=== PATIENT | male | born 1975 | race American Indian/Alaskan Native ===

== ENCOUNTER 2016-08-08 12:10 | Emergency (ER) | payer SELFPAY ==
[2016-08-08 12:26] VITALS: BP 137/87
[2016-08-08 13:13] LABS: Alanine Aminotransferase 13 units/L (7-56); Albumin 3.6 g/dL (3.9-5); Albumin/Globulin Ratio 1.4 %; Alkaline Phosphatase 68 units/L (35-129); BUN/Creatinine Ratio 6.36; Bilirubin,Total 0.2 mg/dL (0.1-1.2); Blood Urea Nitrogen 7 mg/dL (9-20); Calcium 8.8 mg/dL (8.4-10.2); Carbon Dioxide 23 mmol/L (22-30); Glucose 310 mg/dL (75-100); Lipase 37 units/L (13-60); Total Protein 6.2 g/dL (6.3-8.2)
[2016-08-08 13:14] LABS: Anion Gap 18 mmol/L; Chloride 100.2 mmol/L (98-107); Potassium 4.1 mmol/L (3.6-5.0); Sodium 137 mmol/L (137-145)
[2016-08-08 13:27] LABS: Eosinophils % (Auto) 1.1 % (0.0-4.3); Hematocrit 40.8 % (35.5-45.6); Hemoglobin 13.6 gm/dl (11.8-15.2); Mean Corpuscular HGB Conc 33 % (32-34); Mean Corpuscular Hemoglobin 30 pg (28-32); Mean Corpuscular Volume 89 fl (84-94); Platelet Count 188 K/mm3 (140-440); Red Cell Distribution Width 13.6 % (13.2-15.2); White Blood Count 8.9 K/mm3 (4.5-11.0)
[2016-08-08 13:30] LABS: Bilirubin,Urine NEG (Negative); Blood,Urine NEG (Negative); Ketones,Urine TR mg/dL (Negative); Leukocyte Esterase,Urine NEG (Negative); Mucus,Urine FEW /HPF; Nitrite,Urine NEG (Negative); Protein,Urine <15 mg/dL mg/dL (Negative); Urobilinogen,Urine < 2.0 mg/dL (<2.0)
[2016-08-08 13:31] LABS: WBC,Urine < 1.0 /HPF (0.0-6.0)
== END 2016-08-08 20:45 | disposition left against medical advice (07) ==
LOC: ED 12:10
DX: R10.9 Unspecified abdominal pain (principal); R11.0 Nausea; Z53.21 Procedure and treatment not carried out due to patient leaving prior to being seen by health care provider
CPT/HCPCS: 36415; 80053; 81001; 83690; 85025

== ENCOUNTER 2016-08-09 11:30 | Emergency (ER) | payer SELFPAY ==
[2016-08-09] MEDS: MORPHINE IV ONE (18:39)
[2016-08-09] MEDS: NACL 0.9% 1000 ML 1,000 ML IV ONE (18:39)
--- NOTE | 2016-08-09 18:42 | Emergency Department Report ---
HPI - General Chief Complaint: Abdominal Pain Time Seen by Provider: 08/09/16 18:27 - HPI HPI: This is a 41-year-old Afro-[place]ish male who presents to the emergency department with a few days of lower abdominal pain, nausea without vomiting and some rectal bleeding with bowel movements. Patient says he has a history of diverticulitis back in 2014 and says this feels very similar. He was here at [facility] yesterday and had some blood work drawn but eloped prior to seeing a physician due to the wait. He also has a history of diabetes but says he has not had any medication for about 8 months. He did not take anything for symptoms prior to presentation. He drove himself in to be seen today. No recent travel or sick contacts at home. He does not have a primary care doctor. ED Past Medical Hx - Past Medical History Hx Diabetes: Yes (NO MEDS X 8 MONTHS) Additional medical history: DIVERTICULITIS - Social History Smoking Status: Current Every Day Smoker Substance Use Type: Alcohol - Medications Home Medications: Home Medications Medication Instructions Recorded Confirmed Last Taken Type Amoxicillin/K Clav Tab [Augmentin 1 tab PO Q12HR #20 tab 08/09/16 Unknown Rx 875 mg] HYDROcodone/APAP 5-325 [[place] 1 each PO Q6HR PRN #14 tablet 08/09/16 Unknown Rx 5/325] metFORMIN [Glucophage] 500 mg PO BID #60 tablet 08/09/16 Unknown Rx ED Review of Systems ROS: Stated complaint: BLOOD IN STOOL/POSS DIVERTICULOSIS FLAIR UP Other details as noted in HPI Comment: All other systems reviewed and negative Constitutional: denies: chills, fever Eyes: denies: eye pain, eye discharge, vision change ENT: denies: ear pain, throat pain Respiratory: denies: cough, shortness of breath, wheezing Cardiovascular: denies: chest pain, palpitations Gastrointestinal: abdominal pain, nausea. denies: vomiting Genitourinary: denies: urgency, dysuria Musculoskeletal: denies: back pain, joint swelling, arthralgia Skin: denies: rash, lesions Neurological: denies: headache, weakness, paresthesias Physical Exam - Physical Exam Vital Signs: Vital Signs 08/09/16 12:55 Temperature 98 F Pulse Rate 90 Respiratory 18 Rate Blood Pressure 114/76 O2 Sat by Pulse 98 Oximetry Physical Exam: GENERAL: The patient is well-developed well-nourished. HEENT: Normocephalic. Atraumatic. Extraocular motions are intact. Patient has moist mucous membranes. Pupils equal reactive to light bilaterally. NECK: Supple. Trachea is midline. CHEST/LUNGS: Clear to auscultation. There is no respiratory distress noted. HEART/CARDIOVASCULAR: Regular. There is no tachycardia. There is no gallop rub or murmur. ABDOMEN: Abdomen is soft. Tenderness to palpation to the left lower quadrant. No guarding rebound tenderness. No peritoneal signs. Patient has normal bowel sounds. There is no abdominal distention. SKIN: Skin is warm and dry. NEURO: The patient is awake, alert, and oriented. The patient is cooperative. The patient has no focal neurologic deficits. The patient has normal speech. MUSCULOSKELETAL: There is no tenderness or deformity. There is no limitation range of motion. There is no evidence of acute injury. ED Course Vital Signs 08/09/16 12:55 Temperature 98 F Pulse Rate 90 Respiratory 18 Rate Blood Pressure 114/76 O2 Sat by Pulse 98 Oximetry ED Medical Decision Making - Lab Data Result diagrams: 08/09/16 19:09 08/09/16 19:09 - Radiology Data Radiology results: report reviewed CT of the abdomen and pelvis with IV contrast shows mild pericolonic fat stranding in the left lower quadrant that is most consistent with diverticulitis. There is no evidence of any perforation or abscess formation. - Medical Decision Making 41-year-old male presents with lower abdominal pain. He felt that this was consistent with a previous bout of diverticulitis. The patient was correct as CT does identify some mild pericolonic fat stranding that would be consistent with diverticulitis. However there is no sign of any perforation, microperforation or abscess formation. Patient's labs are unremarkable including no leukocytosis. Vital signs stable including being afebrile. From these reasons, the patient appears stable for discharge home for outpatient treatment of his diverticulitis. He was given a dose of IV antibiotics here and will go home on a ten-day course of Augmentin. He has been given a refill prescription of his metformin. He has been given multiple referrals for primary care clinics. He knows to return to the emergency department with any worsening of the symptoms, development of fever, intractable abdominal pain or any acute distress. - Differential Diagnosis diverticulitis, colitis, malignancy Critical Care Time: No Critical care attestation.: If time is entered above; I have spent that time in minutes in the direct care of this critically ill patient, excluding procedure time. ED Disposition Clinical Impression: Diverticulitis Qualifiers: Diverticulitis site: large intestine Diverticulitis bleeding: without bleeding Diverticulitis complication: without perforation or abscess Qualified Code(s): K57.32 - Diverticulitis of large intestine without perforation or abscess without bleeding Disposition: DISCHARGED TO HOME OR SELFCARE Is pt being admited?: No Condition: Stable Instructions: Diverticulitis (ED), Diverticulitis Diet (ED) Additional Instructions: Please follow-up with a primary care doctor in the next few days. Return to the emergency department with any worsening of your abdominal pain, development of a fever, intractable vomiting, or any acute distress. Take the antibiotics as prescribed. You've been prescribed a medication that is sedating. Therefore this medication cannot be mixed with alcohol, or taken prior to driving, working , or being responsible for children. Prescriptions: Amoxicillin/K Clav Tab [Augmentin 875 mg] 1 tab PO Q12HR #20 tab HYDROcodone/APAP 5-325 [[place] 5/325] 1 each PO Q6HR PRN #14 tablet PRN Reason: Pain metFORMIN [Glucophage] 500 mg PO BID #60 tablet Referrals: PRIMARY CARE, [Primary Care Provider] - 3-5 Days [facility] [Outside] - 3-5 Days [facility] [Outside] - 3-5 Days [facility] [Outside] - 3-5 Days [facility] [Outside] - 3-5 Days Time of Disposition: 22:33
[2016-08-09 19:20] LABS: Basophils % (Auto) 1.1 % (0.0-1.8); Eosinophils % (Auto) 1.5 % (0.0-4.3); Hemoglobin 13.6 gm/dl (11.8-15.2); Mean Corpuscular HGB Conc 33 % (32-34); Mean Corpuscular Hemoglobin 30 pg (28-32); Mean Corpuscular Volume 89 fl (84-94); Platelet Count 191 K/mm3 (140-440); Red Blood Count 4.62 M/mm3 (3.65-5.03); Red Cell Distribution Width 13.8 % (13.2-15.2); White Blood Count 9.4 K/mm3 (4.5-11.0)
[2016-08-09 19:37] LABS: Anion Gap 17 mmol/L; Blood Urea Nitrogen 8 mg/dL (9-20); Calcium 8.7 mg/dL (8.4-10.2); Carbon Dioxide 24 mmol/L (22-30); Glucose 141 mg/dL (75-100); Potassium 4.1 mmol/L (3.6-5.0); Sodium 137 mmol/L (137-145)
[2016-08-09] MEDS ORDERED: NACL ONE (19:38)
--- NOTE | 2016-08-09 20:30 | Cat Scan Report ---
FINAL REPORT PROCEDURE: CT ABDOMEN PELVIS W CON TECHNIQUE: Computerized axial tomography of the abdomen and pelvis was performed after the IV injection of iodinated nonionic contrast. HISTORY: abd pain COMPARISON: No prior studies are available for comparison. FINDINGS: Liver, spleen, and adrenal glands are within normal limits. Bilateral kidneys demonstrate uniform enhancement without hydronephrosis. Aorta is of normal caliber. There is no free fluid or free air. Gallbladder is unremarkable. Small bowel loops are within normal limits. Multiple colonic diverticula are noted. There is mild degree of pericolonic fat stranding at the junction of descending colon and sigmoid colon. Moderate amount of residual stool is noted. Appendix is normal. There is no focal fluid collection. Urinary bladder castillo appear thickened most likely secondary to lack of distention IMPRESSION: Mild pericolonic fat stranding in the left lower quadrant is most consistent with diverticulitis. There is no evidence of any perforation or abscess formation at the present time
[2016-08-09] MEDS: ZOSYN/NS 4.5GM/100ML 4.5 GM/100 ML VIAL IV ONE (20:57)
[2016-08-09] MEDS: LEVAQUIN 750MG/150ML 750 MG/150 ML BAG IV ONE (21:08)
[2016-08-09 22:44] VITALS: BP 129/71
--- NOTE | 2016-08-10 09:04 | XRay Report ---
Supine upright views of the abdomen: Abdominal pain. There is no unremarkable distribution of bowel gas. In the upright position a couple of scattered air-fluid levels are identified in the mid and lower abdomen. No free air. No soft tissue mass. No abnormal soft tissue calcifications. Of incidental note appears to be slight narrowing of the superior left acetabular joint space with articular sclerosis of the acetabulum and small lateral spur. Impressions: 1. Nonspecific minimal small bowel ileus. 2. Degenerative left hip changes.
== END 2016-08-09 22:44 | disposition home or self-care (01) ==
LOC: ED 11:30
DX: K57.32 Diverticulitis of large intestine without perforation or abscess without bleeding (principal); E11.9 Type 2 diabetes mellitus without complications; F17.200 Nicotine dependence, unspecified, uncomplicated
CPT/HCPCS: 36415; 74020; 74177; 80048; 82962; 85025; 96361; 96365; 96368; 96375; 99284; J1956; J2270; J2543; J7030; Q9967

== ENCOUNTER 2016-11-22 19:29 | Emergency (ER) | payer SELFPAY ==
[2016-11-22] MEDS ORDERED: XYLOCAINE 1% MPF 5 mL INFILTRATI ONE (21:15)
--- NOTE | 2016-11-22 21:20 | Emergency Department Report ---
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, pain described as 5/10 aching throbbing to tip, there is no fever or redness , rom intact no weakness no tremor or tingling MD Complaint: Injury to:: finger (left middle finger ) Onset/Timin -: days(s) Other Extremity Injury: Fingers: Right (left middler finger ) Other Injuries: none Place: home Severity scale (0 -10): 5 Improves With: none Worsens With: movement of extremity, other (palpation ) Context: other (denies trauma ) Associated Symptoms: denies: weakness, numbness - Related Data Previous Rx's Medication Instructions Recorded Last Taken Type Amoxicillin/K Clav Tab [Augmentin 1 tab PO Q12HR #20 tab 08/09/16 Unknown Rx 875 mg] HYDROcodone/APAP 5-325 [[place] 1 each PO Q6HR PRN #14 tablet 08/09/16 Unknown Rx 5/325] metFORMIN [Glucophage] 500 mg PO BID #60 tablet 08/09/16 Unknown Rx Sulfamethoxazole/Trimethoprim 1 each PO BID #20 tablet 11/22/16 Unknown Rx [Bactrim DS TAB] traMADol [Ultram 50 MG tab] 50 mg PO Q6HR PRN #15 tablet 11/22/16 Unknown Rx Allergies Allergy/AdvReac Type Severity Reaction Status Date / Time No Known Allergies Allergy Unverified 08/08/16 12:22 ED Review of Systems ROS: Stated complaint: LEFT FINGER Other details as noted in HPI Constitutional: denies: chills, fever Eyes: denies: eye pain, eye discharge, vision change ENT: denies: ear pain, throat pain Respiratory: denies: cough, shortness of breath, wheezing Cardiovascular: denies: chest pain, palpitations Endocrine: no symptoms reported Gastrointestinal: denies: abdominal pain, nausea, diarrhea Genitourinary: denies: urgency, dysuria Musculoskeletal: denies: back pain, joint swelling, arthralgia Skin: other (left middle finger paronychia ). denies: rash Neurological: denies: headache, weakness, paresthesias Psychiatric: as per HPI Hematological/Lymphatic: denies: easy bleeding, easy bruising ED Past Medical Hx - Past Medical History Hx Diabetes: Yes (NO MEDS X 8 MONTHS) Additional medical history: DIVERTICULITIS - Social History Smoking Status: Current Every Day Smoker Substance Use Type: Alcohol - Medications Home Medications: Home Medications Medication Instructions Recorded Confirmed Last Taken Type Amoxicillin/K Clav Tab [Augmentin 1 tab PO Q12HR #20 tab 08/09/16 Unknown Rx 875 mg] HYDROcodone/APAP 5-325 [[place] 1 each PO Q6HR PRN #14 tablet 08/09/16 Unknown Rx 5/325] metFORMIN [Glucophage] 500 mg PO BID #60 tablet 08/09/16 Unknown Rx Sulfamethoxazole/Trimethoprim 1 each PO BID #20 tablet 11/22/16 Unknown Rx [Bactrim DS TAB] traMADol [Ultram 50 MG tab] 50 mg PO Q6HR PRN #15 tablet 11/22/16 Unknown Rx ED Physical Exam - General Limitations: No Limitations General appearance: alert, in no apparent distress - Head Head exam: Present: atraumatic, normocephalic - Eye Eye exam: Present: normal appearance - ENT ENT exam: Present: mucous membranes moist - Neck Neck exam: Present: normal inspection - Respiratory Respiratory exam: Present: normal lung sounds bilaterally. Absent: respiratory distress - Cardiovascular Cardiovascular Exam: Present: regular rate, normal rhythm. Absent: systolic murmur, diastolic murmur, rubs, gallop - GI/Abdominal GI/Abdominal exam: Present: soft, normal bowel sounds - Rectal Rectal exam: Present: deferred - Extremities Exam Extremities exam: Present: tenderness, normal capillary refill. Absent: joint swelling - Expanded Upper Extremity Exam Left Hand Wrist exam: Present: full ROM, tenderness, swelling, other (left middle finger paronychia ). Absent: abrasion, laceration, ecchymosis, deformity, crepidus, dislocation, erythema, amputation, nail avulsion, subungual hematoma Neuro motor exam: Present: wrist extension intact, thumb opposition intact, thumb IP flexion intact, thumb adduction intact, fingers 2-5 abduction intact Neurosensory exam: Present: 2-point discrimination, radial nerve intact, ulnar nerve intact, median nerve intact Vascular: Present: normal capillary refill, radial pulse, brachial pulse, ulnar pulse. Absent: vascular compromise, Pallo, pulse deficit radial art, pulse deficit ulnar art, pulse deficit brachial art - Back Exam Back exam: Present: normal inspection - Neurological Exam Neurological exam: Present: alert - Psychiatric Psychiatric exam: Present: normal affect, normal mood - Skin Skin exam: Present: other (left middle finger paronychia ) ED Course Vital Signs 11/22/16 19:51 Temperature 98.3 F Pulse Rate 73 Respiratory 18 Rate Blood Pressure 126/80 O2 Sat by Pulse 98 Oximetry - I & D Left Dorsal Finger Type of Procedure: Simple (paronychia) Blade Size: 11 I & D Procedure: betadine prep Progress: left middle finger paronychia finger cleaned with betadine solution , anesthesis awiht 1% lidocaine plain 2 cc, I&D with 11 blade scaple, moderat white thick pus output , nail bed blunt probed wtih steril swab, irrigated with 10 cc ns, sterile dressing applied pt given wound care instructions pt verbalized understanding of same, pt tolerated procedure with minimal distress, ED Medical Decision Making - Medical Decision Making 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 Critical care attestation.: If time is entered above; I have spent that time in minutes in the direct care of this critically ill patient, excluding procedure time. ED Disposition Clinical Impression: Paronychia of finger of left hand Disposition: DC-01 TO HOME OR SELFCARE Is pt being admited?: No Does the pt Need Aspirin: No Condition: Good Instructions: Paronychia (ED) Prescriptions: Sulfamethoxazole/Trimethoprim [Bactrim DS TAB] 1 each PO BID #20 tablet traMADol [Ultram 50 MG tab] 50 mg PO Q6HR PRN #15 tablet PRN Reason: Pain Referrals: PRIMARY CARE, [Primary Care Provider] - 3-5 Days Forms: Work/School Release Form(ED) Time of Disposition: 22:10
[2016-11-22 22:20] VITALS: BP 128/72
== END 2016-11-22 22:21 | disposition home or self-care (01) ==
LOC: ED 19:29
DX: L03.012 Cellulitis of left finger (principal); E11.9 Type 2 diabetes mellitus without complications; F17.210 Nicotine dependence, cigarettes, uncomplicated
CPT/HCPCS: 99282

== ENCOUNTER 2017-05-13 17:12 | Emergency (ER) | payer SELFPAY ==
[2017-05-13] MEDS ORDERED: NACL 0.9% 1000 ML 1,000 ML IV ONE (17:24)
[2017-05-13 17:59] LABS: Basophils # (Auto) 0.1 K/mm3 (0.0-0.1); Basophils % (Auto) 0.9 % (0.0-1.8); Eosinophils # (Auto) 0.1 K/mm3 (0.0-0.4); Hematocrit 42.4 % (35.5-45.6); Hemoglobin 14.2 gm/dl (11.8-15.2); Lymphocytes # (Auto) 2.2 K/mm3 (1.2-5.4); Lymphocytes % (Auto) 18.3 % (13.4-35.0); Mean Corpuscular HGB Conc 34 % (32-34); Mean Corpuscular Hemoglobin 30 pg (28-32); Mean Corpuscular Volume 89 fl (84-94); Monocytes % (Auto) 8.9 % (0.0-7.3); Platelet Count 191 K/mm3 (140-440); Red Blood Count 4.76 M/mm3 (3.65-5.03); Red Cell Distribution Width 13.5 % (13.2-15.2)
[2017-05-13 18:09] LABS: INR 0.94 (0.87-1.13)
[2017-05-13 18:18] LABS: Alanine Aminotransferase 11 units/L (7-56); Albumin 4.1 g/dL (3.9-5); BUN/Creatinine Ratio 9; Blood Urea Nitrogen 10 mg/dL (9-20); Calcium 8.8 mg/dL (8.4-10.2); Hemolysis Index 7; Lipase 41 units/L (13-60)
[2017-05-13 21:02] VITALS: BP 123/78
== END 2017-05-13 23:00 | disposition left against medical advice (07) ==
LOC: ED 17:12
DX: K92.2 Gastrointestinal hemorrhage, unspecified (principal); Z53.21 Procedure and treatment not carried out due to patient leaving prior to being seen by health care provider
CPT/HCPCS: 36415; 80053; 83690; 85025; 85610; 85730; 86850; 86900; 86901; 93005; 93010

== ENCOUNTER 2018-07-24 19:11 | Emergency (ER) | payer OTHER ==
[2018-07-24 20:35] VITALS: BP 123/87
--- NOTE | 2018-07-24 20:37 | Emergency Department Report ---
Blank Doc - Documentation Documentation: 43 y o male presents to ED stating he needs help with his cociane adddiction, states last cocaine use was today. denies cp,or any other sx labs ordered MAin side eval
[2018-07-24 20:53] LABS: Basophils # (Auto) 0.1 K/mm3 (0.0-0.1); Basophils % (Auto) 0.9 % (0.0-1.8); Eosinophils # (Auto) 0.1 K/mm3 (0.0-0.4); Eosinophils % (Auto) 1.1 % (0.0-4.3); Lymphocytes # (Auto) 2.3 K/mm3 (1.2-5.4); Lymphocytes % (Auto) 25.2 % (13.4-35.0); Mean Corpuscular HGB Conc 34 % (32-34); Mean Corpuscular Volume 91 fl (84-94); Monocytes # (Auto) 0.9 K/mm3 (0.0-0.8); Monocytes % (Auto) 9.5 % (0.0-7.3); Platelet Count 276 K/mm3 (140-440); Red Blood Count 4.86 M/mm3 (3.65-5.03); Red Cell Distribution Width 13.5 % (13.2-15.2)
[2018-07-24 21:07] LABS: Alanine Aminotransferase 9 units/L (7-56); Albumin 4.6 g/dL (3.9-5); BUN/Creatinine Ratio 4; Blood Urea Nitrogen 4 mg/dL (9-20); Calcium 9.3 mg/dL (8.4-10.2); Hemolysis Index 9
[2018-07-24 21:13] LABS: Amphetamine Screen,Urine PRESUMPTIVE NEGATIVE; Benzodiazepines Screen,Urine PRESUMPTIVE NEGATIVE; Methadone Screen,Urine PRESUMPTIVE NEGATIVE; Opiate Screen,Urine PRESUMPTIVE NEGATIVE
[2018-07-24 21:25] LABS: Cannabinoid Screen,Urine PRESUMPTIVE POSITIVE; Cocaine Screen,Urine PRESUMPTIVE POSITIVE
--- NOTE | 2018-07-24 21:34 | Emergency Department Report ---
ED General Adult HPI - General Chief complaint: Psych Stated complaint: DETOX Time Seen by Provider: 07/24/18 20:33 Source: patient, RN notes reviewed Mode of arrival: Ambulatory Limitations: No Limitations - History of Present Illness Initial comments: This is a 43-year-old gentleman, not known to this provider previously, presents to the emergency room for medical clearance for detox from cocaine. Patient uses "as often as I can get it." He denies homicidality and suicidality. He has a mild frontal headache which started earlier on yesterday. The headache is intermittent, not sudden or thunderclap in nature, and not maximal in intensity. He otherwise denies physical pain. He is not expressing hallucinations. He reports he is motivated to participate in detox. -: Gradual Location: head Severity scale (0 -10): 0 Consistency: constant, intermittent Improves with: none Worsens with: none - Related Data Previous Rx's Medication Instructions Recorded Last Taken Type Amoxicillin/K Clav Tab [Augmentin 1 tab PO Q12HR #20 tab 08/09/16 Unknown Rx 875 mg] HYDROcodone/APAP 5-325 [Hudson 1 each PO Q6HR PRN #14 tablet 08/09/16 Unknown Rx 5/325] metFORMIN [Glucophage] 500 mg PO BID #60 tablet 08/09/16 Unknown Rx Sulfamethoxazole/Trimethoprim 1 each PO BID #20 tablet 11/22/16 Unknown Rx [Bactrim DS TAB] metFORMIN [Glucophage] 500 mg PO BID #60 tablet 11/22/16 Unknown Rx traMADol [Ultram 50 MG tab] 50 mg PO Q6HR PRN #15 tablet 11/22/16 Unknown Rx Allergies Allergy/AdvReac Type Severity Reaction Status Date / Time No Known Allergies Allergy Unverified 08/08/16 12:22 ED Review of Systems ROS: Stated complaint: DETOX Other details as noted in HPI Constitutional: denies: malaise Eyes: denies: vision change ENT: denies: epistaxis Respiratory: denies: cough Cardiovascular: denies: chest pain Gastrointestinal: denies: abdominal pain Genitourinary: denies: dysuria Musculoskeletal: denies: back pain Skin: denies: lesions Neurological: headache Psychiatric: denies: homicidal thoughts, suicidal thoughts ED Past Medical Hx - Past Medical History Previous Medical History?: Yes Hx Diabetes: Yes (NO MEDS X 8 MONTHS) Additional medical history: DIVERTICULITIS - Surgical History Past Surgical History?: No - Social History Smoking Status: Current Every Day Smoker Substance Use Type: Cocaine - Medications Home Medications: Home Medications Medication Instructions Recorded Confirmed Last Taken Type Amoxicillin/K Clav Tab [Augmentin 1 tab PO Q12HR #20 tab 08/09/16 Unknown Rx 875 mg] HYDROcodone/APAP 5-325 [Hudson 1 each PO Q6HR PRN #14 tablet 08/09/16 Unknown Rx 5/325] metFORMIN [Glucophage] 500 mg PO BID #60 tablet 08/09/16 Unknown Rx Sulfamethoxazole/Trimethoprim 1 each PO BID #20 tablet 11/22/16 Unknown Rx [Bactrim DS TAB] metFORMIN [Glucophage] 500 mg PO BID #60 tablet 11/22/16 Unknown Rx traMADol [Ultram 50 MG tab] 50 mg PO Q6HR PRN #15 tablet 11/22/16 Unknown Rx ED Physical Exam - General Limitations: No Limitations General appearance: alert, in no apparent distress - Head Head exam: Present: atraumatic, normocephalic - Eye Eye exam: Present: normal appearance, EOMI, other (visual acuity intact to finger counting, color perception, reading at a close distance). Absent: nystagmus - ENT ENT exam: Present: normal exam, normal orophraynx, mucous membranes moist, normal external ear exam - Neck Neck exam: Present: normal inspection, full ROM. Absent: tenderness, meningismus - Respiratory Respiratory exam: Present: normal lung sounds bilaterally. Absent: respiratory distress - Cardiovascular Cardiovascular Exam: Present: regular rate, normal rhythm, normal heart sounds. Absent: bradycardia, tachycardia, irregular rhythm, systolic murmur, diastolic murmur, rubs, gallop - GI/Abdominal GI/Abdominal exam: Present: soft. Absent: distended, tenderness, guarding, rebo und, rigid, pulsatile mass - Rectal Rectal exam: Present: deferred - Extremities Exam Extremities exam: Present: normal inspection, full ROM, other (2+ pulses noted in the bilateral upper extremities. Muscular compartments are soft. There is no long bony tenderness.). Absent: calf tenderness - Back Exam Back exam: Present: normal inspection, full ROM. Absent: tenderness, CVA t enderness (R), paraspinal tenderness, vertebral tenderness - Neurological Exam Neurological exam: Present: alert, oriented X3, other (Extraocular movements intact. Tongue midline. No facial droop. Facial sensation intact to light touch in the V1, V2, V3 distribution bilaterally. 5 and 5 strength in 4 extremities.. Sensation is intact to light touch in 4 extremities.). Absent: motor sensory deficit - Psychiatric Psychiatric exam: Absent: homicidal ideation, suicidal ideation - Skin Skin exam: Present: warm, dry, intact, normal color. Absent: rash ED Course Vital Signs 07/24/18 20:34 Temperature 98 F Pulse Rate 101 H Respiratory 18 Rate Blood Pressure 123/87 O2 Sat by Pulse 100 Oximetry - Reevaluation(s) Reevaluation #1: 07/24/18 23:02 Differential diagnosis, including not limited to: Cocaine dependence, medical clearance for detox, intracranial lesion Assessment and plan: 43-year-old gentleman seeking medical clearance and placement for cocaine dependence. He is afebrile with reassuring vital signs and clinically sober and does not meet 1013 criteria at this time. His tachycardia is resolved on my physical examination. Screening laboratory studies so far unremarkable. Noncontrast CT scan of brain is negative for acute disease. The psychiatric team has been contacted to discuss with the patient his options for cocaine detoxification. Reevaluation #2: 07/25/18 00:48 Patient given outpatient resources for cocaine detox independence by our mental health counselor, Mr. Brian Mcfarland. Patient appears to be comfortable and in no acute distress, and is suitable for discharge at this point in time ED Medical Decision Making - Lab Data Result diagrams: 07/24/18 20:41 07/24/18 20:41 Vital Signs 07/24/18 20:34 Temperature 98 F Pulse Rate 101 H Respiratory 18 Rate Blood Pressure 123/87 O2 Sat by Pulse 100 Oximetry Lab Results 07/24/18 07/24/18 07/24/18 Range/Units 20:41 20:41 20:41 WBC 9.2 (4.5-11.0) K/mm3 RBC 4.86 (3.65-5.03) M/mm3 Hgb 15.0 (11.8-15.2) gm/dl Hct 44.0 (35.5-45.6) % MCV 91 (84-94) fl MCH 31 (28-32) pg MCHC 34 (32-34) % RDW 13.5 (13.2-15.2) % Plt Count 276 (140-440) K/mm3 Lymph % (Auto) 25.2 (13.4-35.0) % Chilton % (Auto) 9.5 H (0.0-7.3) % Eos % (Auto) 1.1 (0.0-4.3) % Baso % (Auto) 0.9 (0.0-1.8) % Lymph # 2.3 (1.2-5.4) K/mm3 Chilton # 0.9 H (0.0-0.8) K/mm3 Eos # 0.1 (0.0-0.4) K/mm3 Baso # 0.1 (0.0-0.1) K/mm3 Seg Neutrophils % 63.3 (40.0-70.0) % Seg Neutrophils # 5.8 (1.8-7.7) K/mm3 Sodium 138 (137-145) mmol/L Potassium 4.2 (3.6-5.0) mmol/L Chloride 100.0 (98-107) mmol/L Carbon Dioxide 25 (22-30) mmol/L Anion Gap 17 mmol/L BUN 4 L (9-20) mg/dL Creatinine 0.9 (0.8-1.5) mg/dL Estimated GFR > 60 ml/min BUN/Creatinine Ratio 4 % Glucose 192 H (75-100) mg/dL Calcium 9.3 (8.4-10.2) mg/dL Total Bilirubin 0.60 (0.1-1.2) mg/dL AST 16 (5-40) units/L ALT 9 (7-56) units/L Alkaline Phosphatase 63 (35-129) units/L Total Creatine Kinase (55-170) units/L Total Protein 7.9 (6.3-8.2) g/dL Albumin 4.6 (3.9-5) g/dL Albumin/Globulin Ratio 1.4 % Urine Opiates Screen Urine Methadone Screen Ur Barbiturates Screen Phenytoin 0.9 L (10.0-20.0) ug/mL Carbamazepine 2.0 L (4-12) ug/mL Ur Phencyclidine Scrn Ur Amphetamines Screen U Benzodiazepines Scrn Nittany 0.1 (0.0-1.2) mmol/L Urine Cocaine Screen U Marijuana (THC) Screen Drugs of Abuse Note Plasma/Serum Alcohol (0-0.07) % 07/24/18 07/24/18 07/24/18 Range/Units 20:41 20:54 21:35 WBC (4.5-11.0) K/mm3 RBC (3.65-5.03) M/mm3 Hgb (11.8-15.2) gm/dl Hct (35.5-45.6) % MCV (84-94) fl MCH (28-32) pg MCHC (32-34) % RDW (13.2-15.2) % Plt Count (140-440) K/mm3 Lymph % (Auto) (13.4-35.0) % Chilton % (Auto) (0.0-7.3) % Eos % (Auto) (0.0-4.3) % Baso % (Auto) (0.0-1.8) % Lymph # (1.2-5.4) K/mm3 Chilton # (0.0-0.8) K/mm3 Eos # (0.0-0.4) K/mm3 Baso # (0.0-0.1) K/mm3 Seg Neutrophils % (40.0-70.0) % Seg Neutrophils # (1.8-7.7) K/mm3 Sodium (137-145) mmol/L Potassium (3.6-5.0) mmol/L Chloride (98-107) mmol/L Carbon Dioxide (22-30) mmol/L Anion Gap mmol/L BUN (9-20) mg/dL Creatinine (0.8-1.5) mg/dL Estimated GFR ml/min BUN/Creatinine Ratio % Glucose (75-100) mg/dL Calcium (8.4-10.2) mg/dL Total Bilirubin (0.1-1.2) mg/dL AST (5-40) units/L ALT (7-56) units/L Alkaline Phosphatase (35-129) units/L Total Creatine Kinase 390 H (55-170) units/L Total Protein (6.3-8.2) g/dL Albumin (3.9-5) g/dL Albumin/Globulin Ratio % Urine Opiates Screen Presumptive negative Urine Methadone Screen Presumptive negative Ur Barbiturates Screen Presumptive negative Phenytoin (10.0-20.0) ug/mL Carbamazepine (4-12) ug/mL Ur Phencyclidine Scrn Presumptive negative Ur Amphetamines Screen Presumptive negative U Benzodiazepines Scrn Presumptive negative Nittany (0.0-1.2) mmol/L Urine Cocaine Screen Presumptive positive U Marijuana (THC) Screen Presumptive positive Drugs of Abuse Note Disclamer Plasma/Serum Alcohol < 0.01 (0-0.07) % - Radiology Data Radiology results: report reviewed, image reviewed Noncontrast CT scan of the brain is negative for acute disease. Critical care attestation.: If time is entered above; I have spent that time in minutes in the direct care of this critically ill patient, excluding procedure time. ED Disposition Clinical Impression: History of cocaine dependence Disposition: DC-01 TO HOME OR SELFCARE Is pt being admited?: No Does the pt Need Aspirin: No Condition: Stable Instructions: Cocaine Abuse (ED) Additional Instructions: Discontinued consumption of cocaine. Long-term complications of cocaine consumption include disability, stroke, paralysis, addiction, loss of quality of life. Follow up with any of the listed outpatient resources for cocaine dependence Referral Recommendations: 1. [facility] Address: [address] [place] [id number] Hours: Open today 8AM 5PM 2. [facility] Address: [address] [place] [id number] Hours: Open today 8AM 1PM 3. [place] [facility] Hours: 24 Hours Contact for assistance: * 911 * [facility] National Suicide Prevention Lifeline www.suicidepreventionlifeline.org (853) 559-TALK (3223) * [facility] National Helpline (724) 527-HELP (1670) * [place] [facility] Reminders: * Take medications as ordered. Do not change the dose or time unless directed by your physician * If you experience side effects from your medications, Notify your outpatient provider or PCP. * Ensure any weapons, lethal medications or other means of self harm are secured by family/ guardian/ friend to prevent access to them. * Make and/ or keep all recommended appointments as scheduled. Follow-up with her primary care doctor within the next month. Return to the emergency room right away with new, worsening or different symptoms. Patient may take Tylenol, alternating with ibuprofen, [id number], as needed for p ain. Referrals: [facility], [facility] MD MINA [Primary Care Provider] - 3-5 Days [facility] [Provider Group] - 3-5 Days
[2018-07-24] MEDS ORDERED: TYLENOL PO ONE (21:40)
--- NOTE | 2018-07-24 22:13 | Cat Scan Report ---
PROCEDURE: CT HEAD/BRAIN WO CON TECHNIQUE: Computerized tomography of the head was performed without contrast material. CT DOSE LENGTH PRODUCT: 920.5 mGycm HISTORY: headache cocaine use COMPARISONS: None . FINDINGS: Skull and scalp: Normal . Paranasal sinuses: Normal . Ventricles and subarachnoid spaces: Normal . Cerebrum: No evidence of hemorrhage, acute infarction or mass . Cerebellum and brainstem: No evidence of hemorrhage, acute infarction or mass . Vasculature: Normal . Other: None . ASPECTS: 10 IMPRESSION: Normal Examination . This document is electronically signed by Nik Nuñez MD., July 24 2018 10:11:41 PM ET
[2018-07-24] MEDS ORDERED: IBUPROFEN PO ONE (22:58)
== END 2018-07-25 02:05 | disposition home or self-care (01) ==
LOC: ED 19:11
DX: F14.20 Cocaine dependence, uncomplicated (principal); R51 Headache; E11.9 Type 2 diabetes mellitus without complications; F17.200 Nicotine dependence, unspecified, uncomplicated
CPT/HCPCS: 36415; 70450; 80053; 80156; 80178; 80185; 80307; 82550; 85025; 99284; G0480; 80320

== ENCOUNTER 2018-12-26 15:05 | Emergency (ER) | payer OTHER ==
[2018-12-26 15:13] VITALS: BP 121/76
--- NOTE | 2018-12-26 15:13 | Event Note ---
ED Screening Note Date of service: 12/26/18 Time: 15:11 ED Screening Note: This is a 43 y.o. M. that presents to the ER with right hip pain and nausea since last night. This initial assessment/diagnostic orders/clinical plan/treatment(s) is/are subject to change based on patients health status, clinical progression and re- assessment by fellow clinical providers in the ED. Further treatment and workup at subsequent clinical providers discretion. Patient/guardian urged not to elope from the ED as their condition may be serious if not clinically assessed and managed. Initial orders include: XR right hip
--- NOTE | 2018-12-26 16:28 | XRay Report ---
Right hip, 2 views INDICATION: Right hip pain for one day. COMPARISON: None. IMPRESSION: No acute osseous or soft tissue abnormality. No significant DJD. Signer Name: Colten Garvey Jr, MD Signed: 12/26/2018 4:23 PM Workstation Name: [id number]
[2018-12-26] MEDS ORDERED: DECADRON IM ONE (16:31)
[2018-12-26] MEDS ORDERED: IBUPROFEN PO ONE (16:31)
--- NOTE | 2018-12-26 16:31 | Emergency Department Report ---
ED Back Pain/Injury HPI - General Chief Complaint: Extremity Injury, Lower Stated Complaint: RT HIP PAIN/NAUSEA Time Seen by Provider: 12/26/18 15:10 Source: patient Limitations: No Limitations - Related Data Previous Rx's Medication Instructions Recorded Last Taken Type Cyclobenzaprine [Flexeril] 10 mg PO TID PRN #10 tablet 12/26/18 Unknown Rx Ibuprofen [Motrin] 800 mg PO Q8HR PRN #20 tablet 12/26/18 Unknown Rx metFORMIN [Glucophage] 500 mg PO BID #60 tablet 12/26/18 Unknown Rx predniSONE [Deltasone] 20 mg PO DAILY #5 tablet 12/26/18 Unknown Rx Allergies Allergy/AdvReac Type Severity Reaction Status Date / Time No Known Allergies Allergy Unverified 08/08/16 12:22 ED Review of Systems ROS: Stated complaint: RT HIP PAIN/NAUSEA Other details as noted in HPI Comment: All other systems reviewed and negative ED Past Medical Hx - Past Medical History DIVERTICULITIS ED Back Pain Physical Exam - Exam General: Vital signs noted. No distress. Alert and acting appropriately. ED Course Vital Signs 12/26/18 15:11 Temperature 98.4 F Pulse Rate 80 Respiratory 16 Rate Blood Pressure 121/76 O2 Sat by Pulse 96 Oximetry Ed Back Pain Tests - Tests Tests: Normal X Rays ED Medical Decision Making - Radiology Data Radiology results: report reviewed, image reviewed Critical care attestation.: If time is entered above; I have spent that time in minutes in the direct care of this critically ill patient, excluding procedure time. ED Disposition Clinical Impression: Sciatica, Medication refill Disposition: TO HOME OR SELFCARE Is pt being admited?: No Does the pt Need Aspirin: No Condition: Stable Instructions: Lumbar Radiculopathy (ED) Additional Instructions: WARM COMPRESSES AND BATHS WILL HELP MEDS ORDERED TODAY FOLLOW UP WITH DR MÉNDEZ IF PAIN PERSISTS REFERRAL BELOW FOLLOW UP WITH PCP FOR DM REFERRAL BELOW Referrals: HANNAH MÉNDEZ MD [Staff Physician] - 3-5 Days DSEI HARPER MD [Staff Physician] - 3-5 Days Time of Disposition: 16:38
== END 2018-12-26 17:00 | disposition home or self-care (01) ==
LOC: ED 15:05
DX: M54.30 Sciatica, unspecified side (principal); Z76.0 Encounter for issue of repeat prescription
CPT/HCPCS: 73502; J1100

== ENCOUNTER 2019-01-17 19:29 | Emergency (ER) | payer SELFPAY ==
--- NOTE | 2019-01-17 20:26 | Emergency Department Report ---
ED Psych HPI - General Chief Complaint: Psych Stated Complaint: SI ATTEMPT Time Seen by Provider: 01/17/19 19:56 Source: patient, EMS Mode of arrival: Ambulatory - History of Present Illness Initial Comments: Patient is 43 years old male with history of depression, bipolar disorder. Patient presented to the ER complaining of depression and suicidal attempt. Patient presented with laceration to both wrists. Patient stated that he is going through some trouble with his family. Patient also stating that he is hearing voices causing him to hurt himself. Patient denied homicidal ideation. MD Complaint: suicidal ideation, feels depressed -: Gradual Associated Psychiatric Symptoms: depression, suicidal ideation, racing thoughts, auditory hallucinations History of same: Yes Quality: constant Associated Symptoms: denies other symptoms Treatments Prior to Arrival: none If Self Harm: admits thoughts of, has acted on plan, self-inflicted trauma - Related Data Previous Rx's Medication Instructions Recorded Last Taken Type Cyclobenzaprine [Flexeril] 10 mg PO TID PRN #10 tablet 12/26/18 Unknown Rx Ibuprofen [Motrin] 800 mg PO Q8HR PRN #20 tablet 12/26/18 Unknown Rx metFORMIN [Glucophage] 500 mg PO BID #60 tablet 12/26/18 2 Days Ago Rx ~01/17/19 predniSONE [Deltasone] 20 mg PO DAILY #5 tablet 12/26/18 2 Days Ago Rx ~01/17/19 Allergies Allergy/AdvReac Type Severity Reaction Status Date / Time No Known Allergies Allergy Unverified 08/08/16 12:22 ED Review of Systems ROS: Stated complaint: SI ATTEMPT Other details as noted in HPI Comment: All other systems reviewed and negative Constitutional: denies: chills, fever Respiratory: denies: cough, orthopnea, shortness of breath, SOB with exertion Cardiovascular: denies: chest pain Gastrointestinal: denies: abdominal pain Musculoskeletal: denies: back pain Neurological: denies: headache, weakness Psychiatric: depression, auditory hallucinations, suicidal thoughts. denies: visual hallucinations, homicidal thoughts ED Past Medical Hx - Past Medical History Previous Medical History?: Yes Hx Diabetes: Yes (NO MEDS X 8 MONTHS) Additional medical history: DIVERTICULITIS - Social History Smoking Status: Current Every Day Smoker Substance Use Type: Alcohol, Cocaine - Medications Home Medications: Home Medications Medication Instructions Recorded Confirmed Last Taken Type Cyclobenzaprine [Flexeril] 10 mg PO TID PRN #10 tablet 12/26/18 01/18/19 Unknown Rx Ibuprofen [Motrin] 800 mg PO Q8HR PRN #20 tablet 12/26/18 01/18/19 Unknown Rx metFORMIN [Glucophage] 500 mg PO BID #60 tablet 12/26/18 01/19/19 2 Days Ago Rx ~01/17/19 predniSONE [Deltasone] 20 mg PO DAILY #5 tablet 12/26/18 01/19/19 2 Days Ago Rx ~01/17/19 ED Physical Exam - General Limitations: No Limitations General appearance: alert, in no apparent distress, other (depressed) - Head Head exam: Present: atraumatic, normocephalic, normal inspection - Eye Eye exam: Present: normal appearance - ENT ENT exam: Present: normal exam, normal orophraynx, mucous membranes moist - Neck Neck exam: Present: normal inspection, full ROM. Absent: tenderness, meningismus, lymphadenopathy, thyromegaly - Respiratory Respiratory exam: Present: normal lung sounds bilaterally - Cardiovascular Cardiovascular Exam: Present: regular rate, normal rhythm, normal heart sounds - GI/Abdominal GI/Abdominal exam: Present: soft, normal bowel sounds. Absent: distended, tenderness, guarding, rebound, rigid, diminished bowel sounds, organomegaly, mass, bruit, pulsatile mass, hernia - Extremities Exam Extremities exam: Present: normal inspection, full ROM, normal capillary refill - Back Exam Back exam: Present: normal inspection, full ROM, CVA tenderness (L). Absent: CVA tenderness (R), muscle spasm, paraspinal tenderness, vertebral tenderness, rash noted - Neurological Exam Neurological exam: Present: alert, oriented X3, CN II-XII intact, normal gait, reflexes normal - Psychiatric Psychiatric exam: Present: normal mood - Skin Skin exam: Present: warm, normal color, other (bilateral wrist laceration. 4 cm on the right side and 5 cm on the left side.) ED Course Vital Signs 01/17/19 01/18/19 01/18/19 20:00 01:35 07:00 Temperature 98.1 F 98.7 F 97.6 F Pulse Rate 74 70 Respiratory 18 18 18 Rate Blood Pressure 107/51 127/72 102/60 [Left] O2 Sat by Pulse 97 96 96 Oximetry 10/10/0101/18/19 01/19/19 13:00 19:46 02:32 Temperature 98.2 F 98.0 F 97.4 F L Pulse Rate 74 66 79 Respiratory 18 18 18 Rate Blood Pressure 111/61 137/78 110/75 [Left] O2 Sat by Pulse 93 96 96 Oximetry 01/19/19 01/19/19 01/19/19 08:00 16:20 21:05 Temperature 98.1 F 98.3 F 98.3 F Pulse Rate 76 81 81 Respiratory 18 18 16 Rate Blood Pressure 117/80 121/78 114/71 [Left] O2 Sat by Pulse 98 99 96 Oximetry 01/20/19 01/20/19 01/20/19 07:00 14:00 20:00 Temperature 97.7 F 98.1 F 98.4 F Pulse Rate 79 89 75 Respiratory 18 18 16 Rate Blood Pressure 117/74 125/74 113/65 [Left] O2 Sat by Pulse 98 99 98 Oximetry 01/21/19 01/21/19 01/21/19 01:12 09:29 20:00 Temperature 97.7 F 98.0 F 98.4 F Pulse Rate 69 67 71 Respiratory 12 18 18 Rate Blood Pressure 119/73 112/73 126/78 [Left] O2 Sat by Pulse 94 100 99 Oximetry 01/22/19 01/22/19 01/22/19 01:00 08:45 13:00 Temperature 97.6 F 97.8 F 98.1 F Pulse Rate 67 68 84 Respiratory 16 18 18 Rate Blood Pressure 98/58 117/80 130/80 [Left] O2 Sat by Pulse 97 97 98 Oximetry - Laceration /Wound Repair Right Wrist Wound Location: upper extremity Wound Length (cm): 9 (4 cm on the right and 5 cm on the left) Wound's Depth, Shape: linear Wound Explored: clean Wound Repaired With: Dermabond Sterile Dressing Applied?: Yes ED Medical Decision Making - Lab Data Result diagrams: 01/17/19 20:14 01/17/19 20:14 Critical care attestation.: If time is entered above; I have spent that time in minutes in the direct care of this critically ill patient, excluding procedure time. ED Disposition Clinical Impression: Suicide attempt, Laceration Disposition: DC/TX-65 PSY HOSP/PSY UNIT Is pt being admited?: No Condition: Stable Referrals: PRIMARY CARE, [Primary Care Provider] - 3-5 Days
[2019-01-17 20:36] LABS: Basophils # (Auto) 0.1 K/mm3 (0.0-0.1); Basophils % (Auto) 1.4 % (0.0-1.8); Eosinophils # (Auto) 0.2 K/mm3 (0.0-0.4); Eosinophils % (Auto) 2.1 % (0.0-4.3); Hemoglobin 14.7 gm/dl (11.8-15.2); Lymphocytes # (Auto) 2.2 K/mm3 (1.2-5.4); Lymphocytes % (Auto) 25.1 % (13.4-35.0); Mean Corpuscular HGB Conc 34 % (32-34); Mean Corpuscular Volume 89 fl (84-94); Monocytes # (Auto) 0.7 K/mm3 (0.0-0.8); Monocytes % (Auto) 8.2 % (0.0-7.3); Platelet Count 238 K/mm3 (140-440); Red Blood Count 4.84 M/mm3 (3.65-5.03)
[2019-01-17 20:41] LABS: Bilirubin,Urine NEG (Negative); Blood,Urine SM (Negative); Color,Urine Yellow (Yellow); Protein,Urine <15 mg/dL mg/dL (Negative); Urobilinogen,Urine < 2.0 mg/dL (<2.0)
[2019-01-17 20:47] LABS: Amphetamine Screen,Urine PRESUMPTIVE NEGATIVE
[2019-01-17 20:48] LABS: Benzodiazepines Screen,Urine PRESUMPTIVE NEGATIVE; Methadone Screen,Urine PRESUMPTIVE NEGATIVE; Opiate Screen,Urine PRESUMPTIVE NEGATIVE
[2019-01-17 20:51] LABS: BUN/Creatinine Ratio 4; Blood Urea Nitrogen 4 mg/dL (9-20); Calcium 9.1 mg/dL (8.4-10.2); Hemolysis Index 6
[2019-01-17 21:53] LABS: Cannabinoid Screen,Urine PRESUMPTIVE POSITIVE; Cocaine Screen,Urine PRESUMPTIVE POSITIVE
--- NOTE | 2019-01-18 10:24 | Consultation ---
History of Present Illness - Reason for Consult Consult date: 01/18/19 Reason for consult: Mental Health Evaluation Requesting physician: NATHANIEL HERNANDEZ - Chief Complaint Chief complaint: "i don;t know what to do" - History of Present Psychiatric Illness 43 y.o. AA male who presented to the ER for suicide attempt by cutting both his wrist. Today the patient was calm, but somewhat guarded during the assessment. He did state that he is "struggling" with his drug addiction. He stated that he used his "rent money" to get "high." He was asked several other questions about his mental health, he would not answer. He denies any previous suicide attempts when asked. He acknowledged that he wanted to "" when he cut both his wrist prior to coming to the ER. He denies HI's and AVH's. He would not confirm or deny SI's. He denies a poor appetite, but stated that his sleep have been "off." He denies alcohol consumption (etoh). Medications and Allergies Allergies Allergy/AdvReac Type Severity Reaction Status Date / Time No Known Allergies Allergy Unverified 08/08/16 12:22 Home Medications Medication Instructions Recorded Confirmed Last Taken Type Cyclobenzaprine [Flexeril] 10 mg PO TID PRN #10 tablet 12/26/18 Unknown Rx Ibuprofen [Motrin] 800 mg PO Q8HR PRN #20 tablet 12/26/18 Unknown Rx metFORMIN [Glucophage] 500 mg PO BID #60 tablet 12/26/18 01/18/19 Unknown Rx predniSONE [Deltasone] 20 mg PO DAILY #5 tablet 12/26/18 Unknown Rx Past psychiatric history - Past Medical History Past Medical History: No medical history Past Surgical History: No surgical history - past Psychiatric treatment and history psychiatric treatment history: Hx of substance abuse. Denies a fam psy hx. - Social History Social history: lives with family Mental Status Exam - Vital signs Last Vital Signs Temp 97.6 F 01/18/19 07:00 Pulse 70 01/18/19 07:00 Resp 18 01/18/19 07:00 BP 102/60 01/18/19 07:00 Pulse Ox 96 01/18/19 07:00 - Exam Narrative exam: MSE: Appearance: calm Behavior: regular eye contact Speech: regular rate and low tone Mood: guarded Affect: congruent to mood Thought Process: circumstantial Thought Content: denies HI's and AVH's Motor Activity: lying in bed Cognition: A/O x 3 Insight: variable Judgment: poor Results Result Diagrams: 01/17/19 20:14 01/17/19 20:14 Abnormal lab results 01/17/19 01/17/19 01/17/19 Range/Units 20:14 20:14 20:14 [place] % (Auto) (0.0-7.3) % BUN 4 L (9-20) mg/dL Glucose 158 H (75-100) mg/dL Salicylates < 0.3 L (2.8-20.0) mg/dL Acetaminophen < 5.0 L (10.0-30.0) ug/mL 01/17/19 Range/Units 20:14 [place] % (Auto) 8.2 H (0.0-7.3) % BUN (9-20) mg/dL Glucose (75-100) mg/dL Salicylates (2.8-20.0) mg/dL Acetaminophen (10.0-30.0) ug/mL All other labs normal. Assessment and Plan Assessment and plan: Impression: MDD. Cannabis Use DO. Substance Use DO (cocaine). Today the patient was calm, but somewhat guarded during the assessment. DDx: Substance Induced Mood DO Recommendations/Plan: Continue 1013 and start Zoloft 50 mg PO daily for depression and Melatonin 5 mg PO HS for sleep. Discussed possible suicidality/medication induced teri with the patient reference Zoloft, he verbalized understanding. Dipso: The patient was referred to inpatient psy services. Will Staff with Dr Melinda Gresham.
[2019-01-18] MEDS: SERTRALINE 25 MG TAB PO SCH (11:40)
[2019-01-18] MEDS: MELATONIN 5 MG TAB PO SCH (22:03)
--- NOTE | 2019-01-19 10:11 | Progress Note ---
Subjective - Reason for Consult Consult date: 01/19/19 Reason for consult: Psychiatry Follow-up - Chief Complaint Chief complaint: "I'm thinking about my kids" 43 y.o. AA male who presented to the ER for suicide attempt by cutting both his wrist. Today the patient was calm, but still guarded during the assessment. He stated that he is "only" concerned about his family at this time. He didn't want to address his mood when asked. He did state that he feel "hopeless." He denies Hi's and AVH's. He would not confirm or deny SI's. No indications of side effects from his medication. Mental Status Exam - Vital signs Last Vital Signs Temp 98.1 F 01/19/19 08:00 Pulse 76 01/19/19 08:00 Resp 18 01/19/19 08:00 BP 117/80 01/19/19 08:00 Pulse Ox 98 01/19/19 08:00 - Exam Narrative exam: MSE: Appearance: calm Behavior: poor eye contact Speech: regular rate and low tone Mood: guarded, "hopeless" Affect: congruent to mood Thought Process: circumstantial Thought Content: denies HI's and AVH's Motor Activity: lying in bed Cognition: A/O x 3 Insight: variable Judgment: variable Assessment and Plan Impression: MDD. Cannabis Use DO. Substance Use DO (cocaine). Today the patient was calm, but somewhat guarded during the assessment. DDx: Substance Induced Mood DO Recommendations/Plan: Continue 1013, Zoloft 50 mg PO daily for depression, and Melatonin 5 mg PO HS for sleep. Discussed possible suicidality/medication induced teri with the patient reference Zoloft, he verbalized understanding. Dipso: The patient was referred to inpatient psy services. Will staff with Dr Melinda Gresham.
[2019-01-19] MEDS: SERTRALINE 25 MG TAB PO SCH (11:00)
[2019-01-19] MEDS ORDERED: IBUPROFEN 800 MG TAB PO PRN (14:06)
[2019-01-19] MEDS: metFORMIN 500 MG TAB PO SCH ×2 (15:20→21:32)
[2019-01-19] MEDS: MELATONIN 5 MG TAB PO SCH (21:32)
[2019-01-20] MEDS: metFORMIN 500 MG TAB PO SCH ×2 (11:11→22:00)
[2019-01-20] MEDS: SERTRALINE 25 MG TAB PO SCH (11:12)
--- NOTE | 2019-01-20 12:27 | Progress Note ---
Subjective - Reason for Consult Consult date: 01/20/19 Reason for consult: Psychiatry Follow-up - Chief Complaint Chief complaint: "I need help bad" 43 y.o. AA male who presented to the ER for suicide attempt by cutting both his wrist. Today the patient was calm and cooperative during the assessment. He was more engaging. He stated that he must get help for his mental health. He stated, "I'm no help to anyone at this point in my life." He stated that his conversations with his are going okay since his arrival to the ER. He still want confirm or deny SI's. He denies HI;s and AVH's. He denies any side effects from his medication. Mental Status Exam - Vital signs Last Vital Signs Temp 97.7 F 01/20/19 07:00 Pulse 79 01/20/19 07:00 Resp 18 01/20/19 07:00 BP 117/74 01/20/19 07:00 Pulse Ox 98 01/20/19 07:00 - Exam Narrative exam: MSE: Appearance: calm, cooperative Behavior: regular eye contact Speech: regular rate and low tone Mood: "okay" Affect: congruent to mood Thought Process: circumstantial Thought Content: denies HI's and AVH's Motor Activity: lying in bed Cognition: A/O x 3 Insight: variable to fair Judgment: variable Assessment and Plan Impression: MDD. Cannabis Use DO. Substance Use DO (cocaine). Today the patient was calm and cooperative during the assessment. DDx: Substance Induced Mood DO Recommendations/Plan: Continue 1013, Zoloft 50 mg PO daily for depression, and Melatonin 5 mg PO HS for sleep. Discussed possible suicidality/medication induced teri with the patient reference Zoloft, he verbalized understanding. Dipso: The patient was referred to inpatient psy services. Will staff with Dr Melinda Gresham.
[2019-01-20] MEDS: MELATONIN 5 MG TAB PO SCH (22:00)
[2019-01-21] MEDS ORDERED: metFORMIN 500 MG TAB ONE ×2 (10:13→23:12)
[2019-01-21] MEDS ORDERED: SERTRALINE 50 MG TAB ONE (10:14)
[2019-01-21] MEDS: metFORMIN 500 MG TAB PO SCH ×2 (10:14→23:42)
[2019-01-21] MEDS: SERTRALINE 25 MG TAB PO SCH (10:14)
[2019-01-21] MEDS ORDERED: TETANUS,DIPH,PERTUSS(ACELL) VACCINE 0.5 ML SYRINGE IM ONE ×2 (10:55→11:25)
--- NOTE | 2019-01-21 14:01 | Progress Note ---
Subjective - Reason for Consult Consult date: 01/21/19 Reason for consult: Psychiatric Follow-up Evaluation - Chief Complaint Chief complaint: "I feel alright" Patient is a 43 y.o. AA male who presented to the ER for suicide attempt by cutting both his wrist. Today the patient is calm and cooperative during the assessment. He stated, "I attempted to slice my wrist. I cracked under pressure." He continues to engage in conversation with his . He reports, " she has been supportive." He reports that his sleep patterns are erratic. Per patient he has a good appetite. He continues to have intermittent/vague SI's. Later, he reports AH's that are negative. For example, " the voices may say go get you a 50 piece and that's going to be it. It's like I'm having a conversation with my self. " He denies HI's, VH's, and delusions. He denies any side effects from his medication. Mental Status Exam - Vital signs Last Vital Signs Temp 98.0 F 01/21/19 09:29 Pulse 67 01/21/19 09:29 Resp 18 01/21/19 09:29 BP 112/73 01/21/19 09:29 Pulse Ox 100 01/21/19 09:29 - Exam Narrative exam: MSE: Appearance: calm, cooperative Behavior: regular eye contact Speech: regular rate and low tone Mood: "I'm alright" Affect: congruent to mood Thought Process: circumstantial Thought Content: denies HI's and VH's ; + SI's and AH's Motor Activity: ambulatory Cognition: A/O x 3 Insight: variable to fair Judgment: variable Assessment and Plan Impression: MDD. Cannabis Use DO. Substance Use DO (cocaine). Today the patient is calm and cooperative during the assessment. He endorses SI's and AH's. DDx: Substance Induced Mood DO Recommendations/Plan: 1. Continue 1013. 2. Continue Zoloft 50 mg PO daily for depression, and Melatonin 5 mg PO HS for sleep. Discussed possible suicidality/medication induced teri with the patient reference Zoloft, he verbalized understanding. 3. Start Risperdal 1mg po QHS psychosis. Discussed metabolic side effects. Patient verbalizes understanding. Disposition: Patient has been accepted to [facility]. Awaiting/pending transport time. Will staff with Dr. Melinda Gresham.
[2019-01-21] MEDS ORDERED: risperiDONE 1 MG TAB PO SCH (22:00)
[2019-01-21] MEDS ORDERED: risperiDONE 1 MG TAB ONE (23:13)
[2019-01-21] MEDS: MELATONIN 5 MG TAB PO SCH (23:42)
[2019-01-22] MEDS ORDERED: SERTRALINE 50 MG TAB ONE (11:04)
[2019-01-22] MEDS ORDERED: metFORMIN 500 MG TAB ONE (11:04)
[2019-01-22] MEDS: metFORMIN 500 MG TAB PO SCH (11:25)
[2019-01-22] MEDS: SERTRALINE 25 MG TAB PO SCH (11:25)
--- NOTE | 2019-01-22 13:11 | Progress Note ---
Subjective - Reason for Consult Consult date: 01/22/19 Reason for consult: Psychiatry Follow-up - Chief Complaint Chief complaint: "I been thinking" 43 y.o. AA male who presented to the ER for suicide attempt by cutting both his wrist. Today the patient was calm during the assessment. He stated that he have done some thinking about his life. He stated that he hope his mental health admission ([facility]) will do him some good. He stated that his situation with his is still 'bad." He stated, "I don't know what to do." He denies SI/HI's and AVH's. He denies any side effects from his medication. Mental Status Exam - Vital signs Last Vital Signs Temp 97.8 F 01/22/19 08:45 Pulse 68 01/22/19 08:45 Resp 18 01/22/19 08:45 BP 117/80 01/22/19 08:45 Pulse Ox 97 01/22/19 08:45 - Exam Narrative exam: MSE: Appearance: calm, cooperative Behavior: regular eye contact Speech: regular rate and low tone Mood: "okay" Affect: flat Thought Process: circumstantial Thought Content: denies SI/HI's and AVH's Motor Activity: lying in bed Cognition: A/O x 3 Insight: variable to fair Judgment: variable Assessment and Plan Impression: MDD. Cannabis Use DO. Substance Use DO (cocaine). Today the patient was calm and cooperative during the assessment. DDx: Substance Induced Mood DO Recommendations/Plan: Continue 1013, Zoloft 50 mg PO daily for depression, Melatonin 5 mg PO HS for sleep, and Risperdal 1 mg PO HS for psychosis. Discussed possible suicidality/medication induced teri with the patient reference Zoloft, he verbalized understanding. Discussed possible metabolic side effects of Risperdal with the patient, he verbalized understanding. Dipso: The patient was accepted at [facility] for inpatient psy services. Will staff with Dr Melinda Gresham.
[2019-01-22 13:33] VITALS: BP 130/80
== END 2019-01-22 14:00 ==
LOC: ED 19:29 → EEVIPCON 19:29 → ED 01-22 14:00
DX: F32.9 Major depressive disorder, single episode, unspecified (principal); F14.10 Cocaine abuse, uncomplicated
CPT/HCPCS: 36415; 80048; 80307; 80320; 81001; 85025; 90471; 90715; G0480

== ENCOUNTER 2020-03-31 19:40 | Emergency (ER) | payer SELFPAY ==
[2020-03-31 20:56] VITALS: BP 134/92
--- NOTE | 2020-03-31 20:57 | Emergency Department Report ---
Blank Doc - Documentation Documentation: 44-year-old male that presents with headache with nausea and blurry vision. D enies any head injuries or trauma. This initial assessment/diagnostic orders/clinical plan/treatment(s) is/are subject to change based on patient's health status, clinical progression and re-assessment by fellow clinical providers in the ED. Further treatment and workup at subsequent clinical providers discretion. Patient/guardians urged not to elope from the ED as their condition may be serious if not clinically assessed and managed. Initial orders include: 1- Patient sent to [facility] for further evaluation and treatment 2- CT head
--- NOTE | 2020-03-31 21:36 | Cat Scan Report ---
. CT head/brain wo con INDICATION / CLINICAL INFORMATION: 44 years Male; headache. TECHNIQUE: Routine CT head without contrast. All CT scans at this location are performed using CT dos e reduction for ALARA by means of automated exposure control. COMPARISON: None. FINDINGS: BRAIN / INTRACRANIAL CONTENTS: No acute hemorrhage, mass effect, midline shift, hydrocephalus, or acu te, large territorial infarct. No signs of significant atrophy or chronic infarct. No significant whi te matter abnormality seen. CRANIOCERVICAL JUNCTION: No significant abnormality. ORBITS: No significant abnormality of visualized orbits. SINUSES / MASTOIDS: No significant abnormality in the visualized paranasal sinuses or mastoid air gi ls. ADDITIONAL FINDINGS: None. IMPRESSION: 1. No focal mass, hemorrhage, hydrocephalus, or acute, large territorial infarct. Signer Name: Moisés Sánchez MD, III Signed: 03/31/2020 9:31 PM Workstation Name: [id number]
[2020-03-31] MEDS ORDERED: dexAMETHasone 20 MG/5 ML VIAL IM ONE (23:41)
[2020-03-31] MEDS ORDERED: METOCLOPRAMIDE 10 MG TAB PO ONE (23:41)
[2020-03-31] MEDS ORDERED: diphenhydrAMINE 25 MG CAP PO ONE (23:41)
[2020-03-31] MEDS ORDERED: ACETAMINOPHEN 500 MG TAB PO ONE (23:43)
--- NOTE | 2020-03-31 23:43 | Emergency Department Report ---
ED Headache HPI - General Chief Complaint: Headache Stated Complaint: DIZZINESS/HEADACHE Time Seen by Provider: 03/31/20 20:57 - History of Present Illness Allergies/Adverse Reactions: Allergies No Known Allergies Allergy (Unverified 08/08/16 12:22) Home Medications: Ambulatory Orders Cyclobenzaprine [Flexeril] 10 mg PO TID PRN #10 tablet 12/26/18 Ibuprofen [Motrin] 800 mg PO Q8HR PRN #20 tablet 12/26/18 metFORMIN [Glucophage] 500 mg PO BID #60 tablet 12/26/18 predniSONE [Deltasone] 20 mg PO DAILY #5 tablet 12/26/18 Acetaminophen [Non-Aspirin Pain Relief] 1,000 mg PO Q6H PRN #30 tablet 04/01/20 Metoclopramide [Reglan] 10 mg PO Q6H PRN #30 tablet 04/01/20 diphenhydrAMINE [Benadryl CAP] 25 mg PO Q6HR PRN #30 capsule 04/01/20 ED Review of Systems ROS: Stated complaint: DIZZINESS/HEADACHE Other details as noted in HPI ED Past Medical Hx - Past Medical History Previous Medical History?: Yes Hx Diabetes: Yes (NO MEDS X 8 MONTHS) Additional medical history: DIVERTICULITIS - Surgical History Past Surgical History?: No - Social History Smoking Status: Current Every Day Smoker Substance Use Type: None - Medications Home Medications: Home Medications Medication Instructions Recorded Confirmed Last Taken Type Cyclobenzaprine [Flexeril] 10 mg PO TID PRN #10 tablet 12/26/18 01/18/19 Unknown Rx Ibuprofen [Motrin] 800 mg PO Q8HR PRN #20 tablet 12/26/18 01/18/19 Unknown Rx metFORMIN [Glucophage] 500 mg PO BID #60 tablet 12/26/18 01/19/19 2 Days Ago Rx ~01/17/19 predniSONE [Deltasone] 20 mg PO DAILY #5 tablet 12/26/18 01/19/19 2 Days Ago Rx ~01/17/19 Acetaminophen [Non-Aspirin Pain 1,000 mg PO Q6H PRN #30 tablet 04/01/20 Unknown Rx Relief] Metoclopramide [Reglan] 10 mg PO Q6H PRN #30 tablet 04/01/20 Unknown Rx diphenhydrAMINE [Benadryl CAP] 25 mg PO Q6HR PRN #30 capsule 04/01/20 Unknown Rx ED Physical Exam - General Limitations: No Limitations ED Course Vital Signs 03/31/20 20:52 Temperature 97.9 F Pulse Rate 80 Respiratory 18 Rate Blood Pressure 134/92 O2 Sat by Pulse 96 Oximetry ED Medical Decision Making - Radiology Data Radiology results: report reviewed, image reviewed Findings Reporting MD: Moisés Sánchez Dictation Time: March 31, 2020 20:31 Gas Pump Attendant: Not available Bench Hand Date: . CT head/brain wo con INDICATION / CLINICAL INFORMATION: 44 years Male; headache. TECHNIQUE: Routine CT head without contrast. All CT scans at this location are performed using CT dose reduction for ALARA by means of automated exposure control. COMPARISON: None. FINDINGS: BRAIN / INTRACRANIAL CONTENTS: No acute hemorrhage, mass effect, midline shift, hydrocephalus, or acute, large territorial infarct. No signs of significant atrophy or chronic infarct. No significant white matter abnormality seen. CRANIOCERVICAL JUNCTION: No significant abnormality. ORBITS: No significant abnormality of visualized orbits. SINUSES / MASTOIDS: No significant abnormality in the visualized paranasal sinuses or mastoid air cells. ADDITIONAL FINDINGS: None. IMPRESSION: 1. No focal mass, hemorrhage, hydrocephalus, or acute, large territorial infarct. Signer Name: Moisés Sánchez MD, III Signed: 03/31/2020 8:31 PM Workstation [id number] - Medical Decision Making This is an acute headache symptoms are resolved at this time. CT head: no mass no bleed no soft tissue abnormality. Plan DC to home with prescriptions. Follow-up with primary care in 2 to 3 days. Return to emergency department should symptoms worsen. Patient verbalizes agreement and understanding with discharge plan. Patient DC'd to home in stable condition at this time. Critical care attestation.: If time is entered above; I have spent that time in minutes in the direct care of this critically ill patient, excluding procedure time. ED Disposition Clinical Impression: Headache Qualifiers: Headache type: unspecified Headache chronicity pattern: acute headache Intractability: not intractable Qualified Code(s): R51.9 - Headache, unspecified Disposition: DC-01 TO HOME OR SELFCARE Is pt being admited?: No Does the pt Need Aspirin: No Condition: Stable Instructions: Migraine Headache, [id number] Prescriptions: diphenhydrAMINE [Benadryl CAP] 25 mg PO Q6HR PRN #30 capsule PRN Reason: Headache Acetaminophen [Non-Aspirin Pain Relief] 1,000 mg PO Q6H PRN #30 tablet PRN Reason: Pain Metoclopramide [Reglan] 10 mg PO Q6H PRN #30 tablet PRN Reason: Headache Referrals: KATIE COOK MD [Staff Physician] - 3-5 Days Forms: Work/School Release Form(ED) Time of Disposition: 00:50
== END 2020-04-01 00:40 | disposition home or self-care (01) ==
LOC: ED 19:40
DX: R51.9 Headache, unspecified (principal); E11.9 Type 2 diabetes mellitus without complications; F17.200 Nicotine dependence, unspecified, uncomplicated
CPT/HCPCS: 70450; 96372; 99283; J1100

== ENCOUNTER 2020-07-13 03:06 | Emergency (ER) | payer SELFPAY ==
[2020-07-13 04:39] LABS: Bilirubin,Urine NEG (Negative); Blood,Urine NEG (Negative); Color,Urine Straw (Yellow); Protein,Urine <15 mg/dL mg/dL (Negative); Urobilinogen,Urine < 2.0 mg/dL (<2.0); WBC,Urine < 1.0 /HPF (0.0-6.0)
--- NOTE | 2020-07-13 05:26 | XRay Report ---
ABDOMEN SUPINE AND ERECT INDICATION / CLINICAL INFORMATION: Abdominal Pain. COMPARISON: None available. FINDINGS: Bowel gas pattern is unremarkable, not indicative of obstruction. No free air or gross abnormal mass. Signer Name: Demond Stoner MD Signed: 07/13/2020 5:21 AM Workstation Name: [id number]
[2020-07-13 05:28] LABS: Basophils # (Auto) 0.1 K/mm3 (0.0-0.1); Basophils % (Auto) 0.8 % (0.0-1.8); Eosinophils # (Auto) 0.3 K/mm3 (0.0-0.4); Eosinophils % (Auto) 2.6 % (0.0-4.3); Hemoglobin 14.6 gm/dl (11.8-15.2); Lymphocytes % (Auto) 17.4 % (13.4-35.0); Mean Corpuscular HGB Conc 34 % (32-34); Mean Corpuscular Volume 91 fl (84-94); Monocytes # (Auto) 1.2 K/mm3 (0.0-0.8); Monocytes % (Auto) 10.4 % (0.0-7.3); Platelet Count 220 K/mm3 (140-440); Red Blood Count 4.74 M/mm3 (3.65-5.03); Red Cell Distribution Width 13.6 % (13.2-15.2)
[2020-07-13 05:36] LABS: INR 0.9 (0.87-1.13)
[2020-07-13 06:01] LABS: Alanine Aminotransferase 10 units/L (7-56); Albumin 4.7 g/dL (3.9-5); BUN/Creatinine Ratio 11; Blood Urea Nitrogen 12 mg/dL (9-20); Calcium 9.3 mg/dL (8.4-10.2); Hemolysis Index 13
[2020-07-13 06:15] LABS: Bilirubin,Direct < 0.2 mg/dL (0-0.2)
== END 2020-07-13 07:00 | disposition left against medical advice (07) ==
LOC: ED 03:06
DX: R11.10 Vomiting, unspecified (principal); Z53.21 Procedure and treatment not carried out due to patient leaving prior to being seen by health care provider
CPT/HCPCS: 36415; 74019; 80048; 80076; 81001; 85025; 85610

== ENCOUNTER 2020-07-14 00:21 | Emergency (ER) | payer SELFPAY ==
[2020-07-14 01:32] LABS: Basophils # (Auto) 0.1 K/mm3 (0.0-0.1); Basophils % (Auto) 0.5 % (0.0-1.8); Eosinophils # (Auto) 0.4 K/mm3 (0.0-0.4); Hematocrit 41.8 % (35.5-45.6); Lymphocytes # (Auto) 2.3 K/mm3 (1.2-5.4); Lymphocytes % (Auto) 20.9 % (13.4-35.0); Mean Corpuscular HGB Conc 34 % (32-34); Mean Corpuscular Volume 90 fl (84-94); Monocytes # (Auto) 1.1 K/mm3 (0.0-0.8); Monocytes % (Auto) 9.7 % (0.0-7.3); Platelet Count 208 K/mm3 (140-440); Red Blood Count 4.62 M/mm3 (3.65-5.03); Red Cell Distribution Width 13.4 % (13.2-15.2)
[2020-07-14 01:43] LABS: Alanine Aminotransferase 9 units/L (7-56); Albumin 4.5 g/dL (3.9-5); BUN/Creatinine Ratio 8; Blood Urea Nitrogen 7 mg/dL (9-20); Calcium 9.1 mg/dL (8.4-10.2); Hemolysis Index 5
[2020-07-14] MEDS ORDERED: INSULIN REGULAR, HUMAN 100 UNITS/1 ML IV ONE (02:31)
[2020-07-14] MEDS ORDERED: SODIUM CHLORIDE 0.9% 1000 ML 1,000 ML IV ONE (02:31)
[2020-07-14] MEDS ORDERED: MORPHINE 4 MG/1 ML INJ IV ONE (02:42)
--- NOTE | 2020-07-14 03:06 | Emergency Department Report ---
HPI - General Chief Complaint: Abdominal Pain Time Seen by Provider: 07/14/20 02:30 - HPI HPI: This is a 45-year-old male who presents to the emergency department with complaint of a 2-day history of abdominal pain that is worst in the left lower quadrant. The patient says "this is my diverticulitis." He has had one episode of bright red blood in his stool. The patient also complains of concern for elevated blood sugar as he has been having increased urination and increased thirst. He does have a history of dly-hkypznk-kmypqspcb diabetes but admits to being out of his Metformin over the past 2 months. The patient was here about 24 hours ago and had abdominal x-ray but did not get seen by a physician at that time. He has not taken anything for his symptoms prior to presentation. He does not have a primary care physician. No recent travel or sick contacts at home. Currently his abdominal pain is 7 out of 10 in intensity and sharp. No known aggravating or alleviating factors. ED Past Medical Hx - Past Medical History Previous Medical History?: Yes Hx Diabetes: Yes Additional medical history: DIVERTICULITIS - Surgical History Past Surgical History?: No - Social History Smoking Status: Current Every Day Smoker Substance Use Type: Alcohol - Medications Home Medications: Home Medications Medication Instructions Recorded Confirmed Last Taken Type Cyclobenzaprine [Flexeril] 10 mg PO TID PRN #10 tablet 12/26/18 01/18/19 Unknown Rx Ibuprofen [Motrin] 800 mg PO Q8HR PRN #20 tablet 12/26/18 01/18/19 Unknown Rx predniSONE [Deltasone] 20 mg PO DAILY #5 tablet 12/26/18 01/19/19 2 Days Ago Rx ~01/17/19 Acetaminophen [Non-Aspirin Pain 1,000 mg PO Q6H PRN #30 tablet 04/01/20 Unknown Rx Relief] Metoclopramide [Reglan] 10 mg PO Q6H PRN #30 tablet 04/01/20 Unknown Rx diphenhydrAMINE [Benadryl CAP] 25 mg PO Q6HR PRN #30 capsule 04/01/20 Unknown Rx metFORMIN [Glucophage] 500 mg PO BID #60 tablet 07/14/20 Unknown Rx ED Review of Systems ROS: Stated complaint: BLOOD IN STOOL/EMESIS/FREQUENT URINATION Other details as noted in HPI Comment: All other systems reviewed and negative Constitutional: denies: chills, fever Eyes: denies: eye pain, vision change ENT: denies: ear pain, throat pain Respiratory: denies: cough, shortness of breath Cardiovascular: denies: chest pain, palpitations Endocrine: increased thirst, increased urine Gastrointestinal: abdominal pain. denies: vomiting Genitourinary: frequency. denies: dysuria Musculoskeletal: denies: back pain, arthralgia Skin: denies: rash, lesions Neurological: denies: headache, weakness Physical Exam - Physical Exam Vital Signs: Vital Signs 07/14/20 00:44 Temperature 98.4 F Pulse Rate 82 Respiratory 18 Rate Blood Pressure 140/81 O2 Sat by Pulse 99 Oximetry Physical Exam: GENERAL: The patient is well-developed well-nourished. HENT: Normocephalic. Atraumatic. Patient has moist mucous membranes. EYES: Extraocular motions are intact. NECK: Supple. Trachea is midline. CHEST/LUNGS: Clear to auscultation. There is no respiratory distress noted. HEART/CARDIOVASCULAR: Regular. There is no tachycardia. There is no murmur. ABDOMEN: Abdomen is soft. Generalized abdominal tenderness to palpation. No guarding. Patient has normal bowel sounds. There is no abdominal distention. SKIN: Skin is warm and dry. NEURO: The patient is awake, alert, and oriented. The patient is cooperative. The patient has no focal neurologic deficits. Normal speech. MUSCULOSKELETAL: There is no tenderness or deformity. There is no limitation range of motion. RECTAL: Deferred. ED Course Vital Signs 07/14/20 00:44 Temperature 98.4 F Pulse Rate 82 Respiratory 18 Rate Blood Pressure 140/81 O2 Sat by Pulse 99 Oximetry ED Medical Decision Making - Lab Data Result diagrams: 07/14/20 00:45 07/14/20 00:45 Lab Results 07/14/20 07/14/20 07/14/20 Range/Units 00:45 00:45 00:59 WBC 11.2 H (4.5-11.0) K/mm3 RBC 4.62 (3.65-5.03) M/mm3 Hgb 14.0 (11.8-15.2) gm/dl Hct 41.8 (35.5-45.6) % MCV 90 (84-94) fl MCH 30 (28-32) pg MCHC 34 (32-34) % RDW 13.4 (13.2-15.2) % Plt Count 208 (140-440) K/mm3 Lymph % (Auto) 20.9 (13.4-35.0) % [place] % (Auto) 9.7 H (0.0-7.3) % Eos % (Auto) 4.0 (0.0-4.3) % Baso % (Auto) 0.5 (0.0-1.8) % Lymph # (Auto) 2.3 (1.2-5.4) K/mm3 [place] # (Auto) 1.1 H (0.0-0.8) K/mm3 Eos # (Auto) 0.4 (0.0-0.4) K/mm3 Baso # (Auto) 0.1 (0.0-0.1) K/mm3 Seg Neutrophils % 64.9 (40.0-70.0) % Seg Neutrophils # 7.3 (1.8-7.7) K/mm3 Sodium 136 L (137-145) mmol/L Potassium 4.3 (3.6-5.0) mmol/L Chloride 97.4 L (98-107) mmol/L Carbon Dioxide 24 (22-30) mmol/L Anion Gap 19 mmol/L BUN 7 L (9-20) mg/dL Creatinine 0.9 (0.8-1.3) mg/dL Estimated GFR > 60 ml/min BUN/Creatinine Ratio 8 % Glucose 423 H (75-100) mg/dL POC Glucose (70-105) mg/dL Calcium 9.1 (8.4-10.2) mg/dL Total Bilirubin 0.30 (0.1-1.2) mg/dL AST 12 (5-40) units/L ALT 9 (7-56) units/L Alkaline Phosphatase 86 (35-129) units/L Total Protein 7.3 (6.3-8.2) g/dL Albumin 4.5 (3.9-5) g/dL Albumin/Globulin Ratio 1.6 % Lipase 49 (13-60) units/L Urine Color Straw (Yellow) Urine Turbidity Clear (Clear) Urine pH 6.0 (5.0-7.0) Ur Specific [place] 1.033 H (1.003-1.030) Urine Protein <15 mg/dl (Negative) mg/dL Urine Glucose (UA) >=500 (Negative) mg/dL Urine Ketones Neg (Negative) mg/dL Urine Blood Neg (Negative) Urine Nitrite Neg (Negative) Urine Bilirubin Neg (Negative) Urine Urobilinogen < 2.0 (<2.0) mg/dL Ur Leukocyte Esterase Neg (Negative) Urine WBC (Auto) 0.0 (0.0-6.0) /HPF Urine RBC (Auto) 1.0 (0.0-6.0) /HPF Urine Mucus Few /HPF 07/14/20 Range/Units 04:52 WBC (4.5-11.0) K/mm3 RBC (3.65-5.03) M/mm3 Hgb (11.8-15.2) gm/dl Hct (35.5-45.6) % MCV (84-94) fl MCH (28-32) pg MCHC (32-34) % RDW (13.2-15.2) % Plt Count (140-440) K/mm3 Lymph % (Auto) (13.4-35.0) % [place] % (Auto) (0.0-7.3) % Eos % (Auto) (0.0-4.3) % Baso % (Auto) (0.0-1.8) % Lymph # (Auto) (1.2-5.4) K/mm3 [place] # (Auto) (0.0-0.8) K/mm3 Eos # (Auto) (0.0-0.4) K/mm3 Baso # (Auto) (0.0-0.1) K/mm3 Seg Neutrophils % (40.0-70.0) % Seg Neutrophils # (1.8-7.7) K/mm3 Sodium (137-145) mmol/L Potassium (3.6-5.0) mmol/L Chloride (98-107) mmol/L Carbon Dioxide (22-30) mmol/L Anion Gap mmol/L BUN (9-20) mg/dL Creatinine (0.8-1.3) mg/dL Estimated GFR ml/min BUN/Creatinine Ratio % Glucose (75-100) mg/dL POC Glucose 143 H (70-105) mg/dL Calcium (8.4-10.2) mg/dL Total Bilirubin (0.1-1.2) mg/dL AST (5-40) units/L ALT (7-56) units/L Alkaline Phosphatase (35-129) units/L Total Protein (6.3-8.2) g/dL Albumin (3.9-5) g/dL Albumin/Globulin Ratio % Lipase (13-60) units/L Urine Color (Yellow) Urine Turbidity (Clear) Urine pH (5.0-7.0) Ur Specific [place] (1.003-1.030) Urine Protein (Negative) mg/dL Urine Glucose (UA) (Negative) mg/dL Urine Ketones (Negative) mg/dL Urine Blood (Negative) Urine Nitrite (Negative) Urine Bilirubin (Negative) Urine Urobilinogen (<2.0) mg/dL Ur Leukocyte Esterase (Negative) Urine WBC (Auto) (0.0-6.0) /HPF Urine RBC (Auto) (0.0-6.0) /HPF Urine Mucus /HPF - Radiology Data Radiology results: report reviewed CT abdomen pelvis w con INDICATION: Pt complains of L.L.Q. abd pain, Hx of Dive rticulitis,GI Bleeding. TECHNIQUE: All CT scans at this location are performed using CT dose reduction for ALARA by means of automated exposure control. COMPARISON: 08/09/2016 FINDINGS: Lung bases are clear of acute disease. Liver, gallbladder, spleen, pancreas, kidneys and adrenals are negative. Abdominal aorta is normal in size. No adenopathy. Pelvis Normal appendix. Urinary bladder is unremarkable. Minimal sigmoid diverticulosis but no significant bowel abnormalities. No acute skeletal lesions. IMPRESSION: 1. No acute abnormality. - Medical Decision Making This patient presents to the emergency department with complaint of abdominal pain that he feels is diverticulitis, as well as an episode of rectal bleeding. On examination the patient does have generalized abdominal tenderness to palpation. There is no guarding. The abdomen is soft, nondistended and nontoxic in appearance. Patient's labs are mostly unremarkable including CBC, CMP, lipase and urinalysis, except for hyperglycemia. The patient's blood sugar is 423 but there is no elevation in the anion gap and therefore he does not appear to have diabetic ketoacidosis. Patient was given a liter of IV fluid as well as a dose of IV insulin and upon reevaluation the blood sugar has come down to a much more reasonable level. He was given some IV fluid and a dose of IV analgesia. The patient was reevaluated multiple times over multiple hours and says that he is feeling greatly improved. Vital signs have been reassuring throughout his ED course including being afebrile. The patient will be discharged home to follow-up with a primary care physician and gastroenterology. He will return to the emergency department with any worsening of his symptoms or with any acute distress. Critical Care Time: No Critical care attestation.: If time is entered above; I have spent that time in minutes in the direct care of this critically ill patient, excluding procedure time. ED Disposition Clinical Impression: Rectal bleeding Uncontrolled diabetes mellitus Qualifiers: Diabetes mellitus type: type 2 Glycemic state: with hyperglycemia Qualified Code(s): E11.65 - Type 2 diabetes mellitus with hyperglycemia Abdominal pain Qualifiers: Abdominal location: generalized Qualified Code(s): R10.84 - Generalized abdomin al pain Disposition: TO HOME OR SELFCARE Is pt being admited?: No Condition: Stable Instructions: Rectal Bleeding, Abdominal Pain, Adult, Hyperglycemia, Diabetes Mellitus Type 2 in Adults (ED) Additional Instructions: Please follow-up with a primary care physician in the next few days. I have restarting you on your Metformin. Please try to stay away from foods that are high in sugar, carbohydrates and starches. Keep a blood sugar log. I am giving you a referral for [facility] to follow-up regarding your abdominal pain and rectal bleeding. Return to the emergency department with any worsening of your symptoms, new or concerning symptoms not addressed during this current emergency department visit, or with any acute distress. Prescriptions: metFORMIN [Glucophage] 500 mg PO BID #60 tablet Referrals: [facility] [Provider Group] - 2-3 Days SHAMIR MONROE MD [Staff Physician] - 3-5 Days [facility] [Provider Group] - 3-5 Days Time of Disposition: 05:04
[2020-07-14 03:43] LABS: Bilirubin,Urine NEG (Negative); Blood,Urine NEG (Negative); Color,Urine Straw (Yellow); Mucus,Urine FEW /HPF; Protein,Urine <15 mg/dL mg/dL (Negative); Urobilinogen,Urine < 2.0 mg/dL (<2.0)
--- NOTE | 2020-07-14 04:32 | Cat Scan Report ---
CT abdomen pelvis w con INDICATION: Pt complains of L.L.Q. abd pain, Hx of Diverticulitis,GI Bleeding. TECHNIQUE: All CT scans at this location are performed using CT dose reduction for ALARA by means of automated e xposure control. COMPARISON: 08/09/2016 FINDINGS: Lung bases are clear of acute disease. Liver, gallbladder, spleen, pancreas, kidneys and adrenals are negative. Abdominal aorta is normal in size. No adenopathy. Pelvis Normal appendix. Urinary bladder is unremarkable. Minimal sigmoid diverticulosis but no significant b owel abnormalities. No acute skeletal lesions. IMPRESSION: 1. No acute abnormality. Signer Name: Demond Stoner MD Signed: 07/14/2020 4:28 AM Workstation Name: [id number]
[2020-07-14 05:45] VITALS: BP 138/93
== END 2020-07-14 05:41 | disposition home or self-care (01) ==
LOC: EEVIPCON 00:21 → ED 00:21
DX: K62.5 Hemorrhage of anus and rectum (principal); E11.9 Type 2 diabetes mellitus without complications; F17.200 Nicotine dependence, unspecified, uncomplicated; F12.10 Cannabis abuse, uncomplicated; Z79.899 Other long term (current) drug therapy
CPT/HCPCS: 36415; 74177; 80053; 81001; 82962; 83690; 85025; 96361; 96374; 96375; 99284; J2270; J7030; Q9967; J1815

== ENCOUNTER 2020-07-24 11:58 | Emergency (ER) | payer OTHER ==
[2020-07-24 12:07] VITALS: BP 158/92
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
== END 2020-07-24 15:03 | disposition home or self-care (01) ==
LOC: ED 11:58
DX: S02.832A Fracture of medial orbital wall, left side, initial encounter for closed fracture (principal); S42.215A Unspecified nondisplaced fracture of surgical neck of left humerus, initial encounter for closed fracture; E11.9 Type 2 diabetes mellitus without complications; F17.200 Nicotine dependence, unspecified, uncomplicated; Z79.899 Other long term (current) drug therapy; V49.69XA Unspecified car occupant injured in collision with other motor vehicles in traffic accident, initial encounter; Y93.89 Activity, other specified; Y92.410 Unspecified street and highway as the place of occurrence of the external cause; Y99.8 Other external cause status
CPT/HCPCS: 70450; 70486; 72125

== ENCOUNTER 2020-08-05 11:24 | Emergency (ER) | payer OTHER ==
[2020-08-05 11:33] VITALS: BP 159/103
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
== END 2020-08-05 13:30 | disposition home or self-care (01) ==
LOC: ED 11:24
DX: S01.81XD Laceration without foreign body of other part of head, subsequent encounter (principal); L08.9 Local infection of the skin and subcutaneous tissue, unspecified; R03.0 Elevated blood-pressure reading, without diagnosis of hypertension; Z48.02 Encounter for removal of sutures; E11.9 Type 2 diabetes mellitus without complications; F17.200 Nicotine dependence, unspecified, uncomplicated; Z79.1 Long term (current) use of non-steroidal anti-inflammatories (NSAID); Z79.84 Long term (current) use of oral hypoglycemic drugs; Z79.899 Other long term (current) drug therapy; X58.XXXD Exposure to other specified factors, subsequent encounter
CPT/HCPCS: 87116; 99282

== ENCOUNTER 2020-11-13 14:54 | Emergency (ER) | payer OTHER ==
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
[2020-11-13 19:43] VITALS: BP 123/79
== END 2020-11-13 19:40 | disposition home or self-care (01) ==
LOC: ED 14:54
DX: G89.29 Other chronic pain (principal); Z76.0 Encounter for issue of repeat prescription; I10 Essential (primary) hypertension; F17.200 Nicotine dependence, unspecified, uncomplicated
CPT/HCPCS: 99282

== ENCOUNTER 2021-12-21 10:05 | Emergency (ER) | payer SELFPAY ==
[2021-12-21 11:08] VITALS: BP 129/72
--- NOTE | 2021-12-21 14:11 | XRay Report ---
CHEST 2 VIEWS INDICATION / CLINICAL INFORMATION: Cough. COMPARISON: None available. FINDINGS: SUPPORT DEVICES: None. HEART / MEDIASTINUM: The heart size and pulmonary vasculature are normal. LUNGS / PLEURA: No significant pulmonary or pleural abnormality. No pneumothorax. ADDITIONAL FINDINGS: No significant additional findings. IMPRESSION: No acute findings. Signer Name: Fernando Benz MD Signed: 12/21/2021 2:06 PM Workstation Name: [id number]
[2021-12-21] MEDS ORDERED: IBUPROFEN 800 MG TAB PO ONE (14:21)
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
[2021-12-21 15:54] LABS: Hematocrit 39.3 % (35.5-45.6); Hemoglobin 13.1 gm/dl (11.8-15.2); Mean Corpuscular HGB Conc 33 % (32-34); Mean Corpuscular Volume 90 fl (84-94); Platelet Count 184 K/mm3 (140-440); Red Blood Count 4.38 M/mm3 (3.65-5.03); Red Cell Distribution Width 13.5 % (13.2-15.2)
[2021-12-21 16:23] LABS: Alanine Aminotransferase 8 units/L (7-56); BUN/Creatinine Ratio 6; Blood Urea Nitrogen 5 mg/dL (9-20); Calcium 8.6 mg/dL (8.4-10.2); Hemolysis Index 15
== END 2021-12-21 17:33 | disposition home or self-care (01) ==
LOC: ED 10:05
DX: J06.9 Acute upper respiratory infection, unspecified (principal); E11.9 Type 2 diabetes mellitus without complications; F17.200 Nicotine dependence, unspecified, uncomplicated
CPT/HCPCS: 36415; 71046; 80053; 85027; 99283

== ENCOUNTER 2022-01-03 12:22 | Emergency (ER) | payer SELFPAY ==
[2022-01-03 14:55] VITALS: BP 133/52
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
== END 2022-01-03 15:30 | disposition home or self-care (01) ==
LOC: ED 12:22
DX: J01.90 Acute sinusitis, unspecified (principal); B96.89 Other specified bacterial agents as the cause of diseases classified elsewhere; E11.9 Type 2 diabetes mellitus without complications; F17.200 Nicotine dependence, unspecified, uncomplicated; Z72.89 Other problems related to lifestyle; Z79.899 Other long term (current) drug therapy
CPT/HCPCS: 99282